=== PATIENT | male | born 1995 | race Caucasian/White ===

== ENCOUNTER 2017-07-26 01:10 | Inpatient (IN) | payer OTHER ==
[2017-07-26] MEDS ORDERED: HYDROmorphONE/DILAUDID 2 MG/ML INJ ONE (01:18)
[2017-07-26] MEDS ORDERED: HYDROmorphONE/DILAUDID 2 MG/ML INJ IVP ONE (01:19)
[2017-07-26] MEDS ORDERED: PROPOFOL 200 MG/20 ML VIAL ONE ×2 (01:34→13:21)
--- NOTE | 2017-07-26 01:38 | EDPHY ---
H & P Stated Complaint: L lower leg deformity Time Seen by Provider: 07/26/17 01:28 HPI/ROS: Chief Complaint: Left leg injury HPI: 21-year-old male jumped off of a 4 ft tall landing, landing wrong and felt a pop in his left lower leg. He has a noted deformity and has been unable to bear weight. He has been drinking alcohol and using marijuana tonight. Denies any other medical problems. He did not hit his head. No loss of consciousness. He is awake alert and answering questions appropriately. ROS: 10 point Review of Systems is negative except as noted in the HPI. PMH: Denies Social History: Occasional smoking, occasional alcohol, occasional marijuana Family History: non-contributory Physical Exam: Gen: Awake, Alert, Airway Intact HEENT: Head: Atraumatic Eyes: PERRLA, EOMI Ears: No hemotympanum Nose: No epistaxis Mouth: Normal dentition, Airway patent Face: No deformity Neck: non-tender, no stepoff, Full ROM without pain Chest: non-tender, lungs CTA Heart: normal heart tones Abd: soft, non-tender, atraumatic Pelvis: non-tender, stable to AP and Lateral compression Back: atraumatic, no midline tenderness Ext: Left lower extremity shows a noted deformity with angulation and tenting in the distal 3rd of the tibia and fibula. There is a small overriding abrasion but does not appear to be any laceration or open fracture. Pulses are intact distally with 2+ dorsalis pedis pulses bilaterally. Sensations intact. Capillary refills less than 3 sec. Skin: no rash Neuro: CN II-XII intact, Strength 5/5 in all extremities, sensation intact in all extremities - Personal History Current Tetanus/Diphtheria Vaccine: Yes Current Tetanus Diphtheria and Acellular Pertussis (TDAP): Yes - Medical/Surgical History Hx Asthma: No Hx Chronic Respiratory Disease: No Hx Diabetes: No Hx Cardiac Disease: No Hx Renal Disease: No Hx Cirrhosis: No Hx Alcoholism: No Hx HIV/AIDS: No Hx Splenectomy or Spleen Trauma: No Other PMH: denies - Social History Smoking Status: Never smoked Constitutional: Initial Vital Signs Temperature (C) 37.2 C 07/26/17 01:15 Heart Rate 90 07/26/17 01:15 Respiratory Rate 16 07/26/17 01:15 Blood Pressure 156/96 H 07/26/17 01:15 O2 Sat (%) 100 07/26/17 01:15 O2 Delivery Mode Room Air Allergies/Adverse Reactions: No Known Allergies Allergy (Unverified 07/26/17 01:15) Home Medications: Medication Instructions Recorded NK [No Known Home Meds] 07/26/17 Medical Decision Making - Diagnostics Imaging Results: Patient has an obvious distal tib-fib fracture which is angulated moderately displaced. Imaging: I viewed and interpreted images myself Procedures: Procedure: Procedural sedation. Indication: Tib-fib fracture. A pre-sedation evaluation was completed on the patient just prior to the procedure. Patient is an appropriate candidate for procedural sedation with ASA class 1 E. The risks of the sedation were discussed including but not limited to dysrhythmia, need for airway intervention or general anesthesia, disability, ; and verbal consent obtained. A timeout was observed and patient's identity confirmed. The patient was sedated with propofol and Dilaudid. The patient was monitored with continuous pulse oximetry, capnography , and foundation director. There were no complications and no significant hypoxemia. I remained at the bedside for the sedation. The total time I spent in the procedural sedation was 25 min. Procedure: Fracture reduction. The tib/fib fracture was reduced with counter traction without complications. Post reduction the patient's neurovascular exam is normal. The procedure was performed by myself. Procedure: Splint placement. A plaster posterior and sugar-tong splint was applied by me. After application of the splint I returned and re-examined the patient. The splint was adequately immobilizing the joint and distal to the splint the patient's circulation and sensation was intact. ED Course/Re-evaluation: I have discussed with Dr. Farias, orthopedics. He will review the x-rays. He is asking that I reduce the fracture to a more appropriate alignment here. Patient last ate 4 hr ago. Last alcohol was about an hour to an hour and half ago. Fracture reduced by me. Patient had good perfusion and comfort following the reduction and sedation. Patient be admitted to Dr. Farias for planned surgical repair this afternoon. - Data Points Medications Given: Discontinued Medications Hydromorphone HCl (Dilaudid) 0.5 mg IVP EDNOW ONE Stop: 07/26/17 01:20 Last Admin: 07/26/17 01:25 Dose: 0.5 mg Departure - Departure Disposition: [facility] Inpatient Acute Clinical Impression: Tibia/fibula fracture Condition: Fair Referrals: Patient,NotPresent [Primary Care Provider] - As per Instructions
[2017-07-26] MEDS ORDERED: ONDANSETRON 4 MG/2 ML VIAL IVP PRN ×2 (01:39→15:16)
[2017-07-26] MEDS ORDERED: D5W 1/2 NS W/ 20 KCl/L 1,000 ML IV SCH (01:45)
[2017-07-26] MEDS ORDERED: PROPOFOL 200 MG/20 ML VIAL IVP ONE (01:50)
[2017-07-26 02:20] LABS: PLATELET COUNT 329 10^3/uL (150-400)
--- NOTE | 2017-07-26 07:17 | GHP ---
[f rep st] HISTORY AND PHYSICAL DATE OF ADMISSION: 07/26/2017 CHIEF COMPLAINT: Left leg pain. HISTORY OF PRESENT ILLNESS: The patient is a 21-year-old gentleman who was intoxicated and jumped of f a stair landing. He landed crooked and felt a pop in his left lower leg. He noted inability to be ar weight, pain and a visual deformity. He was brought to the emergency department for further evalu ation. X-rays demonstrated a distal third shaft tib-fib fracture with angulation. He was reduced by the emergency department personnel and put into a long-leg splint and admitted for planned surgical repair. PAST MEDICAL HISTORY: Denies. PAST SURGICAL HISTORY: Denies. MEDICATIONS: None. ALLERGIES: None. SOCIAL HISTORY: He does admit to tobacco use and occasional marijuana use. He is a [employer] student. REVIEW OF SYSTEMS: Negative for current chest pain, shortness of breath, belly pain, back pain, numb ness, tingling, or other joint-related complaints. PHYSICAL EXAMINATION: HEENT: Normocephalic, atraumatic. NECK: Nontender. EXTREMITIES: Bilateral upper extremities are unremarkable. There is no crepitus, step-off, tenderne ss or deformity. Left lower extremity is immobilized in a posterior long-leg splint. He has mild sw elling. The muscular compartments are otherwise soft. He has intact digital flexion-extension of ea ch digit independently actively. Sensation is intact to light touch. He has 2+ dorsalis pedis pulse and capillary refill less than 3 seconds. Right lower extremity demonstrates no step-off deformity, crepitus or tenderness throughout the lower extremity. Pelvis is stable to AP and lateral compressi on. IMAGING: Radiographs demonstrate a distal shaft tib-fib fracture which is transverse in nature. The re is slight cystic cavity, possible for a nonossifying fibroma present within the fracture site. IMPRESSION: Left tibia-fibula fracture. TREATMENT PLAN: I have recommended surgical stabilization. I have outlined the surgical procedure, risks, benefits, and alternatives. He wished to proceed. Written consent will be signed and placed in the patient's chart. He will continue with ice and elevation today, and we will proceed this afternoon with surgical stabi lization. /[id number]/MODL
[2017-07-26] MEDS ORDERED: LR 1,000 ML IV ONE (12:40)
--- NOTE | 2017-07-26 13:13 | PDANEPAE ---
ANE Past Medical History - Pulmonary History Hx Oxygen in Use at Home: No Hx Sleep Apnea: No Sleep Apnea Screening Result - Last Documented: Negative - Endocrine History Hx Diabetes: No ANE Review of Systems Review of Systems: ANE Patient History - Allergies Allergies/Adverse Reactions: No Known Allergies Allergy (Unverified 07/26/17 01:15) - Home Medications Home Medications: NK [No Known Home Meds] 07/26/17 [Last Taken Unknown] - NPO status NPO Since - Liquids (Date): 07/26/17 NPO Since - Liquids (Time): 00:00 NPO Since - Solids (Date): 07/26/17 NPO Since - Solids (Time): 00:00 - Smoking Hx Smoking Status: Never smoked CONCHITA Labs/Vital Signs - Labs Result Diagrams: 07/26/17 01:05 07/26/17 01:05 - Vital Signs Blood Pressure: 132/77 Heart Rate: 75 Respiratory Rate: 14 O2 Sat (%): 93 Height: 182.88 cm Weight: 73.1 kg CONCHITA Physical Exam - Airway Mallampati Score: Class 1 - ASA Status ASA Status: I ANE Anesthesia Plan Anesthesia Plan: GA w LMA
[2017-07-26] MEDS ORDERED: MIDAZOLAM 2 MG/2 ML VIAL ONE (13:20)
[2017-07-26] MEDS ORDERED: fentaNYL 100 MCG/2 ML INJ ONE ×3 (13:21→15:24)
[2017-07-26] MEDS ORDERED: LIDOCAINE 2% JELLY 5 ML TUBE ONE (13:26)
[2017-07-26] MEDS ORDERED: ONDANSETRON 4 MG/2 ML VIAL ONE (13:26)
[2017-07-26] MEDS ORDERED: METOCLOPRAMIDE 10 MG/2 ML VIAL ONE (13:26)
--- NOTE | 2017-07-26 13:53 | ASMTCMCOM ---
CM Note CM Note Notes: Pt has tib/fib fx after a jump while intoxicated. Pt to OR today. Pt is [employer] student. CM to follow up with pt about any interest in alcohol resources. No therapies ordered. Date Signed: 07/26/2017 01:53 PM Electronically Signed By:JEANNETTE Oquendo
[2017-07-26] MEDS ORDERED: ceFAZolin 2 GM/DEXTROSE 100 ML IV SCH (14:00)
[2017-07-26] MEDS ORDERED: ceFAZolin 2 GM/SWFI 2 GM/20 ML SYR IVP ONE (14:00)
[2017-07-26] MEDS ORDERED: HYDROmorphONE/DILAUDID 2 MG/ML INJ IVP PRN (15:16)
[2017-07-26] MEDS ORDERED: NALOXONE HCL 0.4 MG/ML INJ IVP PRN (15:16)
[2017-07-26] MEDS ORDERED: LR 500 ML IV PRN (15:16)
[2017-07-26] MEDS ORDERED: MEPERIDINE 25 MG/0.5 ML AMP ONE (15:20)
[2017-07-26] MEDS ORDERED: MEPERIDINE 25 MG/0.5 ML AMP IVP ONE (15:20)
--- NOTE | 2017-07-26 15:22 | POSTANESTH ---
Post Anesthetic Evaluation Cardiovascular Status: Normal, Stable Respiratory Status: Normal, Stable Level of Consciousness/Mental Status: Can Participate in Eval Pain Control: Adequate, Prn Tx Ordered Nausea/Vomiting Control: Adequate, Prn Tx Ordered Complications Possibly Related to Anesthesia: None Noted
[2017-07-26] MEDS ORDERED: EPINEPHrine 1 MG/ML INJ ONE (15:32)
[2017-07-26] MEDS ORDERED: BUPIVACAINE 0.5% 30 ML SDV ONE (15:32)
[2017-07-26] MEDS: fentaNYL 100 MCG/2 ML INJ IVP PRN ×2 (15:43→16:03)
[2017-07-26] MEDS: oxyCODONE IR 5 MG TAB PO PRN ×3 (17:42→23:03)
[2017-07-26] MEDS: ceFAZolin 2 GM/SWFI 2 GM/20 ML SYR IVP SCH ×2 (18:45→21:31)
[2017-07-27] MEDS: oxyCODONE IR 5 MG TAB PO PRN ×3 (03:27→12:44)
[2017-07-27] MEDS: ceFAZolin 2 GM/SWFI 2 GM/20 ML SYR IVP SCH (05:49)
--- NOTE | 2017-07-27 06:28 | PDMN ---
Medical Necessity Medical necessity: Pt meets INPT criteria per and [facility] S-1124 Tibia/Fibula Shaft Fracture, Open Reduction (L tibia-fibula fracture with ORIF for a distal tibial diasphyseal fracture; est. LOS >2 MN).
--- NOTE | 2017-07-27 06:30 | SOAPPROG ---
SOAP Progress Note Assessment/Plan: Assessment: s/p im nail tibia Plan:d/c home after cleared by pt dvt precautions reviewed fu at two weeks no compartment syndrome 07/27/17 06:28 Subjective: intermittant pain no cp or sob dejan po Objective: Vital Signs Temp Pulse Resp BP Pulse Ox 37.1 C 105 H 17 136/75 H 98 07/27/17 03:39 07/27/17 03:39 07/27/17 03:39 07/27/17 03:39 07/27/17 03:39 07/26/17 07/27/17 07/28/17 05:59 05:59 05:59 Intake Total 1450 2650 Output Total 2650 Balance 1450 0 dressing intact intact pf,df,ehl neg homans jasper xrays stable anatomic alignement no compartment syndrome no pain with passive rom ICD10 Worksheet Patient Problems: Problems Problem Status Onset Tibia/fibula fracture Acute
--- NOTE | 2017-07-27 06:59 | GDS ---
[f rep st] DISCHARGE SUMMARY ADMIT DIAGNOSIS: Left closed tibia-fibula fracture. POSTOP DIAGNOSIS: Left closed tibia-fibula fracture. PROCEDURE: Left tib-fib open reduction, internal fixation. HISTORY OF PRESENT ILLNESS: The patient is a 21-year-old young gentleman who was intoxicated, jumped down a flight of stairs, sustained a closed left tib-fib fracture. Given the fracture location, age , and position, I have recommended surgical stabilization. I have outlined the surgical procedure at length. He understood this and wished to proceed. Written consent was signed and placed in patient 's chart. HOSPITAL COURSE: The patient was admitted to the hospital floor after uncomplicated intramedullary n ailing of the tib-fib fracture. He was monitored overnight for his neurovascular status. There is n o evidence of compartment syndrome. He has intact active plantar flexion, dorsiflexion, limited by t he splint; intact digital flexion-extension without increased pain or discomfort, and his muscular co mpartments are soft. Sensation is grossly intact to light touch throughout his foot and digits. DISCHARGE ACTIVITIES: Nonweightbearing. Range of motion as tolerated to knee. Ice, elevation, and keep the splint clean, dry, and intact. FOLLOWUP: In 2 weeks. Seek attention for increasing numbness, tingling, pain, or other focal compla int. DISCHARGE MEDICATIONS: Oxycodone 5 mg 1-2 every 4 hours p.r.n. pain. DISCHARGE INSTRUCTIONS: Follow up in 2 weeks. /[id number]/MODL
[2017-07-27 07:43] VITALS: BP 143/85
--- NOTE | 2017-07-27 08:19 | GOP ---
[f rep st] OPERATIVE REPORT DATE OF OPERATION: 07/26/2017 SURGEON: Deejay Farias MD CABINET MAKER: Lauro Valdez, REAL ESTATE LISTING CONSULTANT, [facility]. shampoo assistant was a medical necessity for the entirety of the case. PREOPERATIVE DIAGNOSIS: Left closed tib-fib fracture. POSTOPERATIVE DIAGNOSIS: Left closed tib-fib fracture. PROCEDURE PERFORMED: Open reduction and internal fixation, left tib-fib fracture with intramedullary implant. FINDINGS: SPECIMENS: To Pathology, none. INDICATIONS: Michele is a 21-year-old young gentleman who was intoxicated, jumped down a flight of [employer], sustained a fracture through his tibia and fibula with angulation and displacement. Given the fracture location, angulation and instability, I recommended surgical intervention. I have outlined the surgical procedure, risks, benefits, and alternatives. He wished to proceed. Written consent wa s signed and placed in the patient's chart. DESCRIPTION OF PROCEDURE: The patient was identified in the preanesthesia area, the left leg clearly demarcated as the operative site with indelible marker. He was given 2 g of Ancef intravenously en route to the operative suite. In the OR, general endotracheal anesthesia was administered. Attentio n was turned to the left lower extremity which was sterilely prepped and draped in the usual fashion. A tourniquet was applied to the upper thigh. Appropriate time-out procedure was carried out. The limb was then sterilely prepped and draped in the usual fashion, exsanguinated with an Esmarch bandag e and tourniquet inflated to 275 mmHg. The knee was brought over a radiolucent triangle and an anter ior incision made across the knee. This was carried sharply through the skin and subcutaneous tissue to the peritenon. This was elevated to the medial direction and a medial parapatellar arthrotomy was created. Guide pin was then advanced into a central anterior position on the tibia, over-reamed with the opening canal reamer and a guidewire advanced across the tibia and across the fracture site with this held in anatomic position. Serial reaming was carried out to a size 10 mm reamer and a 9 x 375 mm nail was selected from [employer]. This was advanced across the guidewire with traction held across the fracture site. The fracture was reduced to an anatomic position. The nail was then locked with a proximal and distal interlocking screw in standard fashion. The wounds were copiously irrigated, c losed in layers using 0 Vicryl, 2-0 Monocryl, and philip. The margins were instilled with 20 cc of 0 .5% Marcaine with epinephrine. A sterile dressing and posterior 3-way splint was applied. The patie nt was awakened, extubated and taken to the recovery room in good stable condition. TOTAL TOURNIQUET TIME: 58 minutes. COMPLICATIONS: None. IMPLANTS: As above. DISPOSITION: To the recovery room, then the floor, to be monitored for compartment syndrome overnigh t and discharged home. He is nonweightbearing for the first 2 weeks. Once he is placed into a boot, given the transverse nature of this fracture, he may begin touchdown weightbearing. /[id number]/MODL
--- NOTE | 2017-07-27 11:03 | ASMTCMCOM ---
CM Note CM Note Notes: Pt medically stable for d/c. PT rec outpatient. Pt provided ETOH resources. No CM d/c needs identified. Date Signed: 07/27/2017 11:03 AM Electronically Signed By:JEANNETTE Oquendo
== END 2017-07-27 13:08 | disposition home or self-care (01) | DRG 494 ==
LOC: EDBD 01:10 → F3N 03:15
PROVIDERS: ADMIT Orthopaedic Surgery; ATTEND Orthopaedic Surgery
PROC: 0QSHXZZ Reposition Left Tibia, External Approach (ICD-10-PCS; 2017-07-26)
PROC: 0QSKXZZ Reposition Left Fibula, External Approach (ICD-10-PCS; 2017-07-26)
PROC: BQ1FZZZ Fluoroscopy of Left Lower Leg (ICD-10-PCS; principal; 2017-07-26 13:30)
PROC: 0QSH06Z Reposition Left Tibia with Intramedullary Internal Fixation Device, Open Approach (ICD-10-PCS; principal; 2017-07-26 13:30)
PROC: 0QSK0ZZ Reposition Left Fibula, Open Approach (ICD-10-PCS; principal; 2017-07-26 13:30)
DX: S82.222A Displaced transverse fracture of shaft of left tibia, initial encounter for closed fracture (principal); S82.422A Displaced transverse fracture of shaft of left fibula, initial encounter for closed fracture; F10.920 Alcohol use, unspecified with intoxication, uncomplicated; F12.90 Cannabis use, unspecified, uncomplicated; W17.89XA Other fall from one level to another, initial encounter; Y92.039 Unspecified place in apartment as the place of occurrence of the external cause; Y93.83 Activity, rough housing and horseplay; Y90.9 Presence of alcohol in blood, level not specified
CPT/HCPCS: 97161-GP; C1713; J0171; J0690; J1170; J2175; J2250; J2270; J2405; J2704; J2765; J3010

== ENCOUNTER → 2017-09-07 | Outpatient (CLI) | payer OTHER | LOC: BMCIMAGING 13:01 | PROVIDERS: ATTEND Physician Assistant | DX: S82.222D Displaced transverse fracture of shaft of left tibia, subsequent encounter for closed fracture with routine healing (principal); S82.422D Displaced transverse fracture of shaft of left fibula, subsequent encounter for closed fracture with routine healing ==

== ENCOUNTER 2018-07-09 14:25 | Emergency (ER) | payer MEDICAID, OTHER ==
--- NOTE | 2018-07-09 14:42 | EDPHY ---
H & P Stated Complaint: Right Ankle injury, thinks he sprained it Time Seen by Provider: 07/09/18 14:41 HPI/ROS: Chief Complaint: Right ankle injury HPI: The patient presents the emergency department after he inverted his ankle while playing basketball. He presents to the ED complaining of pain and swelling over the lateral malleolus. He denies any pain in the neck hip or back. He denies additional injury. REVIEW OF SYSTEMS: Neuro: no headache, numbness, weakness Musculoskeletal: as above Skin: no abrasion or lacerations Source: Patient Exam Limitations: No limitations - Personal History Current Tetanus/Diphtheria Vaccine: Unsure Current Tetanus Diphtheria and Acellular Pertussis (TDAP): Unsure - Medical/Surgical History Hx Asthma: No Hx Chronic Respiratory Disease: No Hx Diabetes: No Hx Cardiac Disease: No Hx Renal Disease: No Hx Cirrhosis: No Hx Alcoholism: No Hx HIV/AIDS: No Hx Splenectomy or Spleen Trauma: No Other PMH: denies - Social History Smoking Status: Never smoked - Physical Exam Exam: General appearance: alert no distress Right ankle: There is swelling and tenderness over the lateral malleolus. Ankle joint is stable and there is no tenderness over the Achilles tendon. The foot is nontender without swelling. Neurologic exam: The patient has normal sensation and motor function distal to the injury. Vascular exam: Normal pulses and capillary refill in the foot DIFFERENTIAL DIAGNOSIS: After history and physical exam differential diagnosis was considered for ankle injury including sprain, fracture, dislocation and soft tissue injury. Constitutional: Initial Vital Signs Temperature (C) 37 C 07/09/18 14:27 Heart Rate 106 H 07/09/18 14:27 Respiratory Rate 16 07/09/18 14:27 Blood Pressure 123/68 H 07/09/18 14:27 O2 Sat (%) 96 07/09/18 14:27 O2 Delivery Mode Room Air Allergies/Adverse Reactions: No Known Allergies Allergy (Unverified 07/26/17 01:15) Home Medications: Medication Instructions Recorded oxyCODONE IR [Oxycodone Ir (*)] 5 - 10 mg PO Q4HRS PRN #50 tab 07/27/17 Medical Decision Making - Diagnostics Imaging Results: Right ankle x-ray: Images reviewed by myself. Negative for acute fracture. Formal interpretation by Radiology pending. ED Course/Re-evaluation: Patient presents the ED for evaluation of right ankle injury. I see no obvious fracture on the x-ray. The patient will be treated with a Jensen boot and crutches and customary ankle sprain aftercare instructions. He is given follow up with our on-call orthopedic surgeon for any persistent pain, swelling or immobility which persists past 7-10 days. Departure - Departure Disposition: Home, Routine, Self-Care Clinical Impression: Right ankle sprain Qualifiers: Encounter type: initial encounter Condition: Good Instructions: Ankle Sprain (ED) Additional Instructions: 1. Take Ibuprofen or Motrin 600 mg by mouth three times a day. 2. Jensen boot and crutches as needed for comfort. 3. Follow up with the orthopedic surgeon you have been referred to for persistent pain and swelling at persists past 7-10 days. Referrals: Brennen Flores MD [Medical Doctor] - As per Instructions
[2018-07-09 15:26] VITALS: BP 122/78
== END 2018-07-09 15:34 | disposition home or self-care (01) ==
DX: S93.401A Sprain of unspecified ligament of right ankle, initial encounter (principal); X50.1XXA Overexertion from prolonged static or awkward postures, initial encounter; Y93.67 Activity, basketball
CPT/HCPCS: L4386